=== PATIENT | male | born 1930 | race Caucasian/White ===

== ENCOUNTER 2017-03-09 23:54 | Emergency (ER) | payer MEDICARE, BC ==
--- NOTE | 2017-03-10 08:57 | CT ---
PRELIMINARY REPORT/[facility]/EMERGENCY AFTER HOURS PROCEDURE: EXAM: CT Cervical Spine Without Intravenous Contrast EXAM DATE/TIME: Exam ordered 03/10/2017 12:29 AM CLINICAL HISTORY: 87 years old, male; Injury or trauma; Fall; Initial encounter; Abrasion; Patient HX: 87 yo m [place] from [place] with c-collar in place S/P fall from standing. Pt hit back of head and arrives with la ceration to back of head. Ems reports loc and states it took pt 30 seconds before he came back to [facility]. Pt has h/o dementia TECHNIQUE: Axial computed tomography images of the cervical spine without intravenous contrast. Coronal and sagittal reformatted images were created and reviewed. COMPARISON: No relevant prior studies available. FINDINGS: Vertebrae: Unremarkable. No acute fracture. Discs/spinal canal/neural foramina: No acute findings. No spinal canal stenosis. Soft tissues: Unremarkable. Lung apices: Unremarkable as visualized. IMPRESSION: Normal cervical spine CT. Thank you for allowing us to participate in the care of your patient. Dictated and Authenticated by: Ottoniel Palumbo MD 03/10/2017 12:51 AM Central Time ([place] & [place]) FINAL REPORT CERVICAL SPINE CT SCAN WITHOUT IV CONTRAST: EMERGENCY AFTER HOURS EXAMINATION, 12:30 A.M. 03-10-17. Moderate changes of spondylosis. No fracture or facet dislocation. I agree with report given by [facility]. Code QA. POS: [facility]
--- NOTE | 2017-03-10 09:00 | CT ---
PRELIMINARY REPORT/[facility]/EMERGENCY AFTER HOURS PROCEDURE: EXAM: CT Head Without Intravenous Contrast EXAM DATE/TIME: Exam ordered 03/10/2017 12:32 AM CLINICAL HISTORY: 87 years old, male; Injury or trauma; Fall; Initial encounter; Abrasion; Head, generalized; Patient H X: 87 yo m [place] with c-collar in place S/P fall from standing. Pt hit back of head and arrives with laceration to back of head. Ems reports loc and states it took pt 30 seconds before he came back to baseline. Pt has h/o dementia TECHNIQUE: Axial computed tomography images of the head/brain without intravenous contrast. COMPARISON: No relevant prior studies available. FINDINGS: Brain: Extensive left MCA territory encephalomalacia/gliosis. Volume loss and chronic small vessel is chemic change. 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 No hemorrhage. Ventricles: Unremarkable. No ventriculomegaly. Bones/joints: Unremarkable. No acute fracture. Soft tissues: Unremarkable. Sinuses: Complete opacification of the left maxillary sinus and left frontal ethmoid air cells, tamika tible with sinusitis. Mastoid air cells: Unremarkable as visualized. No mastoid effusion. IMPRESSION: 1. Sinusitis. 2. No intracranial hemorrhage. Thank you for allowing us to participate in the care of your patient. Dictated and Authenticated by: Ottoniel Palumbo MD 03/10/2017 12:47 AM Central Time ([place] & [place]) FINAL REPORT HEAD CT WITHOUT CONTRAST: DATE: 03/10/17. COMPARISON: 11/19/16. HISTORY: Fall, head trauma, pain. FINDINGS: I agree with the preliminary [facility] report. There is opacification of the anterior ethmoid air cells and the maxillary sinus on the left, stable. There are scattered opacified mastoid air cells on the left, stable as well. No displaced calvarial fracture is evident. There is encephalomalacia in the inferior/medial aspect of the left cerebellar hemisphere, consistent with stable prior infarction. 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 There is no intrac ranial hemorrhage, midline shift, or mass effect. IMPRESSION: Stable head CT. No intracranial hemorrhage noted. POS: [facility]
== END 2017-03-10 02:03 | disposition home or self-care (01) ==
LOC: ERS 23:54
DX: S01.01XA Laceration without foreign body of scalp, initial encounter (principal); S16.1XXA Strain of muscle, fascia and tendon at neck level, initial encounter; F03.90 Unspecified dementia, unspecified severity, without behavioral disturbance, psychotic disturbance, mood disturbance, and anxiety; W18.30XA Fall on same level, unspecified, initial encounter
CPT/HCPCS: 12002; 70450; 72125